=== PATIENT | male | born 1945 | race Caucasian/White ===

== ENCOUNTER → 2020-02-02 | Outpatient (CLI) | payer MEDICARE ==
--- NOTE | 2020-02-02 12:45 | Diagnostic Imaging Report ---
INDICATION: Pain and swelling. FINDINGS: The bowel gas pattern is unremarkable. No frankly obstructive features. There is a calcification projecting over the lower pole of the left kidney, likely a stone. There are aortic atherosclerotic vascular calcifications and degenerative changes to the spine and hips. IMPRESSION: No acute appearing abnormality. Probable left nephrolithiasis. Dictated by: Dictated on workstation # [id number]
[2020-02-02 13:32] LABS: HEMATOCRIT 46 % (40-54); HEMOGLOBIN 16.1 G/DL (13.3-17.7); MEAN CORPUSCULAR HEMOGLOBIN 32 PG (25-34); MEAN CORPUSCULAR HGB CONC 35 G/DL (32-36); MEAN CORPUSCULAR VOLUME 92 FL (80-99); WHITE BLOOD COUNT 7.4 10^3/uL (4.3-11.0)
[2020-02-02 13:33] LABS: BASOPHILS % (AUTO) 1 % (0-10); EOSINOPHILS # (AUTO) 0.1 10^3/uL (0.0-0.3); EOSINOPHILS % (AUTO) 2 % (0-10); LYMPHOCYTES # (AUTO) 1.6 X 10^3 (1.0-4.0); LYMPHOCYTES % (AUTO) 22 % (12-44); MEAN PLATELET VOLUME 9.8 FL (7.4-10.4); MONOCYTES # (AUTO) 0.6 X 10^3 (0.0-1.0); MONOCYTES % (AUTO) 8 % (0-12); NEUTROPHILS # (AUTO) 4.9 X 10^3 (1.8-7.8); NEUTROPHILS % (AUTO) 67 % (42-75); PLATELET COUNT 170 10^3/uL (130-400)
[2020-02-02 13:40] LABS: CARBON DIOXIDE 24 MMOL/L (21-32); CHLORIDE 102 MMOL/L (98-107); POTASSIUM 4.3 MMOL/L (3.6-5.0); SODIUM 137 MMOL/L (135-145)
[2020-02-02 13:41] LABS: ALANINE AMINOTRANSFERASE 22 U/L (0-55); ALBUMIN 4.6 GM/DL (3.2-4.5); ALKALINE PHOSPHATASE 132 U/L (40-136); BILIRUBIN,TOTAL 0.7 MG/DL (0.1-1.0); BUN/CREATININE RATIO 21; CALCIUM 9.7 MG/DL (8.5-10.1); CREATININE SERUM 0.75 MG/DL (0.60-1.30); GFR ESTIMATED > 60; GLUCOSE 104 MG/DL (70-105); TOTAL PROTEIN 7.3 GM/DL (6.4-8.2)
[2020-02-03 15:24] LABS: CHOLESTEROL 185 MG/DL (< 200); HDL CHOLESTEROL 49 MG/DL (40-60); TRIGLYCERIDES 175 MG/DL (<150); VLDL CHOLESTEROL 35 MG/DL (5-40)
== END ==
LOC: LAB FS 12:12
PROVIDERS: ATTEND Nurse Practitioner Family
DX: Z13.1 Encounter for screening for diabetes mellitus (principal); Z12.5 Encounter for screening for malignant neoplasm of prostate; Z13.220 Encounter for screening for lipoid disorders; K59.00 Constipation, unspecified; R19.01 Right upper quadrant abdominal swelling, mass and lump; R23.8 Other skin changes
CPT/HCPCS: 36415; 74018; 80053; 80061; 84153; 85025

== ENCOUNTER → 2020-04-12 | Outpatient (CLI) | payer MEDICARE ==
[~2020-04-12] MED LIST: CATHETER FLUSH 10 ML SYR IV PRN; HOLD METFORMIN - RECEIVED CONTRAST 20 ML VIAL IV SCH; IOHEXOL 350 MG/ML 100 ML (OMNIPAQUE 350) VIAL IV ONE; NS 100 ML (IVPB) BAG IV ONE
[2020-04-12 12:25] LABS: BUN/CREATININE RATIO 22; CARBON DIOXIDE 26 MMOL/L (21-32); CHLORIDE 103 MMOL/L (98-107); CREATININE SERUM 0.77 MG/DL (0.60-1.30); GFR ESTIMATED > 60; POTASSIUM 4.4 MMOL/L (3.6-5.0); SODIUM 140 MMOL/L (135-145)
[2020-04-12 12:26] LABS: ALANINE AMINOTRANSFERASE 16 U/L (0-55); ALKALINE PHOSPHATASE 112 U/L (40-136); BILIRUBIN,TOTAL 0.7 MG/DL (0.1-1.0); GLUCOSE 96 MG/DL (70-105); TOTAL PROTEIN 6.6 GM/DL (6.4-8.2)
[2020-04-12 12:27] LABS: ALBUMIN 4.5 GM/DL (3.2-4.5)
--- NOTE | 2020-04-12 14:39 | Diagnostic Imaging Report ---
PROCEDURE: CT abdomen with contrast only. TECHNIQUE: Multiple contiguous axial images were obtained through the abdomen after the administration of intravenous contrast. Auto Exposure Controls were utilized during the CT exam to meet ALARA standards for radiation dose reduction. INDICATION: Renal cyst. COMPARISON: None available. FINDINGS: The lung bases are clear. No pericardial or pleural effusion. No free intraperitoneal air or fluid within the abdomen. The liver measures 16 cm in craniocaudal dimension. There is no focal hepatic lesion or nodularity to liver surface. The portal vein remains patent. Spleen is normal in size measuring 11 cm and is without focal lesion. The pancreas is normal. No adrenal mass. No solid renal mass or obstructive uropathy. Nonobstructing 2 mm stone is present in lower pole of the left kidney. There are multiple parapelvic renal cysts on both sides and all measure less than 1 cm. In the medial aspect of the upper pole of the right kidney, there is a partially exophytic cyst measuring 3.0 x 3.3 cm. The stomach is partially filled with fluid and there is no wall thickening. No dilated loops of bowel that would indicate bowel obstruction. Scattered diverticula are noted within the visualized aspects of the sigmoid and descending colon. Atherosclerotic abdominal aorta is normal in caliber. No luminal narrowing at the renal artery origins that would indicate stenosis. Mild levoscoliosis of the lumbar spine without fracture or high-grade spinal stenosis. IMPRESSION: 1. There are bilateral simple-appearing cortical-based and parapelvic renal cysts. None of these cysts have thick septations or mural enhancement that would suggest a cystic neoplasm and these do not require dedicated follow-up imaging. 2. Nonobstructing 2 mm stone in lower pole of the left kidney. Dictated by: Dictated on workstation # [id number]
== END ==
LOC: RAD FS 11:45
PROVIDERS: ATTEND Family Medicine
DX: N28.1 Cyst of kidney, acquired (principal); N20.0 Calculus of kidney
CPT/HCPCS: 36415; 74160; 80053